=== PATIENT | male | born 1975 | race Caucasian/White ===

== ENCOUNTER 2019-04-14 17:28 | Emergency (ER) | payer MEDICAID ==
[~2019-04-14] VITALS: Ht 185.4 cm; Wt 90.0 kg
[2019-04-14 20:40] VITALS: BP 132/87
== END 2019-04-14 20:40 | disposition home or self-care (01) ==
LOC: ER 17:28
DX: S06.0X0A Concussion without loss of consciousness, initial encounter (principal); S13.4XXA Sprain of ligaments of cervical spine, initial encounter; S46.812A Strain of other muscles, fascia and tendons at shoulder and upper arm level, left arm, initial encounter; S46.911A Strain of unspecified muscle, fascia and tendon at shoulder and upper arm level, right arm, initial encounter; M12.511 Traumatic arthropathy, right shoulder; V29.88XA Motorcycle rider (driver) (passenger) injured in other specified transport accidents, initial encounter; Y93.89 Activity, other specified; Y92.89 Other specified places as the place of occurrence of the external cause; Y99.8 Other external cause status
CPT/HCPCS: 99282